=== PATIENT | female | born 2000 | race Caucasian/White ===

== ENCOUNTER 2023-05-04 19:55 | Emergency (ER) | payer OTHER, MEDICAID, SELFPAY ==
[2023-05-04 21:00] VITALS: BP 113/65; PULSE 90; RESP 18; TEMP 37.1; O2SAT 97; BMI 26.9
[2023-05-04 21:33] LABS: Basophils Percent Auto 0.2 % (0-2); Eosinophils Percent Auto 0.1 % (0-4); Hematocrit 42.1 % (37.0-47.0); Hemoglobin 14.6 g/dl (12.0-16.0); Imm Gran Abs Auto 0.07 X10*3/uL (0.00-0.03); Imm Gran Pct Auto 0.4 % (0.0-0.4); Lymphocytes Absolute Auto 0.5 X10*3/uL (1.2-4.9); MANUAL DIFF FLAG SCAN; Mean Corpuscular HGB Conc 34.7 g/dl (31.0-35.0); Mean Corpuscular Hemoglobin 29.6 pg (27.0-33.0); Mean Corpuscular Volume 85.2 fL (80.0-98.0); Monocytes Absolute Auto 0.5 X10*3/uL (0.1-1.2); Neutrophils Absolute Auto 14.5 x10*3/uL (2.0-8.3); Neutrophils Percent Auto 93.3 % (45-73); Platelet Count 297 X10*3/uL (160-400); Red Blood Count 4.94 X10*6/uL (4.20-5.50); Red Cell Distribution Width 11.9 % (11.0-16.0); SCAN SMEAR FLAG 1; White Blood Count 15.6 X10*3/uL (4.8-10.8)
[2023-05-04 21:35] LABS: Appearance Urine Clear; Color Urine Yellow; Glucose Urine UA Negative (Negative); Leukocyte Esterase Urine Trace (Negative); Nitrite Urine Negative (Negative); PH 6.5 (5.0-9.0); Specific Gravity - Urine >= 1.030 (1.005-1.025); UMIC TRIGGER UACC YES; Urine Blood Negative (Negative); Urine Ketones 15 mg/dL (Negative); Urine Protein Trace mg/dL (Neg-Trace)
[2023-05-04 21:36] LABS: UPreg QC Valid YES; Urine Pregnancy NEGATIVE (NEGATIVE)
[2023-05-04 21:38] LABS: Bacteria Urine 2+ (None Seen); Hyaline Casts Urine 0-2 /LPF (0-2); RBC Urine 0-2 /HPF (0-2); WBC Urine 0-5 /HPF (0-5)
[2023-05-04 21:47] LABS: Alanine Aminotransferase 14 U/L (0-31); Albumin Level 4.2 g/dL (3.5-5.0); Alkaline Phosphatase 81 U/L (39-117); Anion Gap 15 (12-20); Aspartate Amino Transferase 21 U/L (5-31); Bilirubin Total 0.8 mg/dL (0.0-1.0); Blood Urea Nitrogen 14 mg/dL (9-16); Calcium 9.7 mg/dL (8.4-10.2); Carbon Dioxide 22 mmol/L (22-29); Chloride 108 mmol/L (96-108); Creatinine Clr Calc Pharmacy 92.1; Estimated Glomerular Filt Rate > 60; Glucose Random 124 mg/dL (60-115); Sodium 141 mmol/L (135-145); Total Protein 7.3 g/dL (6.5-8.0)
[2023-05-04 21:51] LABS: SLIDE REVIEW VERIFIED
[2023-05-04 22:10] LABS: Influenza A PCR NEGATIVE (Negative); Influenza B PCR NEGATIVE (Negative); Resp Syncy Virus RNA Qual PCR NEGATIVE (Negative); SARS COV2 PCR INHOUSE NEGATIVE (Negative)
[2023-05-04 22:41] VITALS: BP 105/65; PULSE 86; TEMP 36.6; O2SAT 96
--- NOTE | 2023-05-04 23:42 | ED_ITS ---
HPI - Nausea/Vomiting/Diarrhea General Chief complaint: Nausea/Vomiting/Diarrhea Stated complaint: Vomiting, diarrhea, back and abd pain Time Seen by Provider: 05/04/23 23:41 Source: patient and other (Significant other) Mode of arrival: ambulatory Limitations: no limitations History of Present Illness HPI Narrative: 23-year-old female with a history of anxiety and migraine headaches who presents emergency department for evaluation of nausea, vomiting and diarrhea. The patient states that her symptoms started 5 hours prior to coming to the emergency department. She states that she has vomited at least 12 times. She has had at least 10 episodes of diarrhea. She has not noticed any blood in the emesis or diarrhea. She denied fever, chills. She denied rhinorrhea, sore throat, cough, chest pain. She states she was feeling short of breath but she attributes this to her anxiety. She states she is feeling very weak and fatigued. Related Data Previous Rx's Medication Instructions Recorded ondansetron 4 mg disintegrating 4 mg PO Q6-8H PRN nausea and 05/04/23 tablet vomiting #14 tabs Allergies Allergy/AdvReac Type Severity Reaction Status Date / Time Seasonal Allergies Allergy Itchy Eyes Verified 05/04/23 21:03 Review of Systems 2 Review of Systems: Yes all other systems are reviewed and are negative [facility] Past Medical History [facility] Narrative: Past medical history: Migraine, anxiety. Social history: She denies tobacco, alcohol and drug use. Social History Social History Advance Directives: No Advance Directives Information Provided: No Physical Exam 2 Vital Signs: Vital Signs: Last Vital Signs Temp 97.9 F 05/04/23 22:41 Pulse 86 05/04/23 22:41 Resp 18 05/04/23 21:00 BP 105/65 05/04/23 22:41 Pulse Ox 96 05/04/23 22:41 O2 Del Method Room Air 05/04/23 22:41 BMI result Body Mass Index 26.9 Vital signs are normal Exam: General: Awake, alert in no distress Head: Normocephalic, atraumatic EENT: PERRL, Lids normal, sclera normal, conjunctiva normal, nose normal , ears normal, throat without erythema or exudates Neck: Supple, no adenopathy, no trachea midline or C-spine tenderness Lung: breath sounds symmetric, no wheezing, rales or rhonchi Chest: symmetric movement, nontender Heart: regular rate and rhythm, normal S1, S2 no murmurs or rubs Abdomen: soft, mild to moderate epigastric tenderness, nondistended, normal bowel sounds Back: no vertebral tenderness, no CVAT Extremities: no deformities, moves all extremities symmetrically Neuro: Awake, alert, oriented, normal speech, moves all extremities symmetrically Psych: Pleasant, cooperative Medications Administered Generic Name Dose Route Start Last Admin Trade Name Freq PRN Reason Stop Dose Admin Sodium Chloride 1,000 mls @ 999 mls/hr 05/04/23 23:50 05/05/23 00:03 Ns IV 05/05/23 00:50 999 mls/hr .Q1H1M STA Administration Discontinued Medications Generic Name Dose Route Start Last Admin Trade Name Freq PRN Reason Stop Dose Admin Ketorolac Tromethamine 15 mg 05/04/23 23:50 05/05/23 00:05 Ketorolac Tromethamine 15 Mg/Ml Vial IVPUSH 05/04/23 23:51 15 mg ONCE STA Administration Ondansetron HCl 4 mg 05/04/23 23:50 05/05/23 00:05 Ondansetron Hcl 4 Mg/2 Ml Vial IVPUSH 05/04/23 23:51 4 mg ONCE ONE Administration Medical Decision Making Medical Decision Making [facility] Narrative: 23-year-old female who presents emergency department for evaluation of nausea, vomiting and diarrhea which started 5 hours prior to coming to emergency department. She had no fever chills or URI like symptoms. She denied myalgias arthralgias. She did have abdominal pain. Vital signs were normal. Exam revealed epigastric tenderness. Laboratory evaluation was interpreted by me as follows: WBC elevated 15,600. H&H normal. Glucose elevated 124 otherwise CMP was normal. COVID-19, influenza and RSV were negative. Urine test was negative. Laboratory evaluations nondiagnostic Patient's symptoms are most likely secondary to viral syndrome versus food poisoning I did discuss this with her. Patient was treated with normal saline IV x1 L, Toradol 15 mg IV for abdominal pain and Zofran 4 mg IV for her nausea and vomiting. 00:34 Patient is feeling better after the above treatment. Patient was discharged home with a prescription for Zofran ODT, she was given printed and verbal instructions. She was advised to take Tylenol ibuprofen for pain and Imodium for diarrhea She was advised to stay on a brat diet. Differential Diagnosis Differential Diagnoses: The differential diagnosis associated with the presentation includes Differential diagnosis includes was not limited to viral syndrome, food poisoning, COVID-19, influenza, RSV, anemia, Admission/Observation Consideration of admission/observation: Escalation of care including admission/observation considered Lab Data MDM Lab Attestation statement: I reviewed the patient's lab results. 05/04/23 21:20 05/04/23 21:20 Labs: Lab Results 05/04/23 Range/Units 21:20 WBC 15.6 H (4.8-10.8) X10*3/uL RBC 4.94 (4.20-5.50) X10*6/uL Hgb 14.6 (12.0-16.0) g/dl Hct 42.1 (37.0-47.0) % MCV 85.2 (80.0-98.0) fL MCH 29.6 (27.0-33.0) pg MCHC 34.7 (31.0-35.0) g/dl RDW 11.9 (11.0-16.0) % Plt Count 297 (160-400) X10*3/uL MPV 10.0 (9.4-12.3) fL Immature Gran % (Auto) 0.4 (0.0-0.4) % Neut % (Auto) 93.3 H (45-73) % Lymph % (Auto) 3.0 L (20-40) % [place] % (Auto) 3.0 (2-11) % Eos % (Auto) 0.1 (0-4) % Baso % (Auto) 0.2 (0-2) % Lymph # (Auto) 0.5 L (1.2-4.9) X10*3/uL [place] # (Auto) 0.5 (0.1-1.2) X10*3/uL Eos # (Auto) 0.0 (0.0-0.4) X10*3/uL Baso # (Auto) 0.0 (0.0-0.2) X10*3/uL Abs Immat Gran (auto) 0.07 H (0.00-0.03) X10*3/uL Absolute Neuts (auto) 14.5 H (2.0-8.3) x10*3/uL Absolute Nucleated RBC 0.000 (0.0-0.012) X10*3/uL Nucleated RBC % (auto) 0.0 (0.0-0.2) /100WBC Smear Tech's Comments VERIFIED Sodium 141 (135-145) mmol/L Potassium 4.0 (3.3-5.1) mmol/L Chloride 108 (96-108) mmol/L Carbon Dioxide 22 (22-29) mmol/L Anion Gap 15 (12-20) BUN 14 (9-16) mg/dL Creatinine 0.87 (0.5-1.4) mg/dL Estim Creat Clear Calc 92.1 Estimated GFR > 60 Random Glucose 124 H (60-115) mg/dL Calcium 9.7 (8.4-10.2) mg/dL Total Bilirubin 0.8 (0.0-1.0) mg/dL AST 21 (5-31) U/L ALT 14 (0-31) U/L Alkaline Phosphatase 81 (39-117) U/L Total Protein 7.3 (6.5-8.0) g/dL Albumin 4.2 (3.5-5.0) g/dL Urine Color Yellow Urine Appearance Clear Urine pH 6.5 (5.0-9.0) Ur Specific Elrod >= 1.030 H (1.005-1.025) Urine Protein Trace (Neg-Trace) mg/dL Urine Glucose (UA) Negative (Negative) mg/dL Urine Ketones 15 (Negative) mg/dL Urine Blood Negative (Negative) Urine Nitrite Negative (Negative) Ur Leukocyte Esterase Trace H (Negative) Urine RBC 0-2 (0-2) /HPF Urine WBC 0-5 (0-5) /HPF Ur Squamous Epith Cells 6-10 (0-2) /HPF Urine Bacteria 2+ (None Seen) Hyaline Casts 0-2 (0-2) /LPF Urine Test NEGATIVE (NEGATIVE) Influenza Type A (PCR) NEGATIVE (Negative) Influenza Type B (PCR) NEGATIVE (Negative) RSV RNA Qual (PCR) NEGATIVE (Negative) SARS-CoV-2 RNA (RT-PCR) NEGATIVE (Negative) Independent Historian Clinical information obtained from an independent historian. History obtained from or confirmed by: Other (Significant other, Pola) Prescription Management I considered prescription management with: Other (Antiemetics) Chronic Conditions Patient?s care impacted by: Other (Anxiety, migraine) Discharge Plan Discharge Clinical Impression: Viral syndrome, Acute dehydration Vomiting Qualifiers: Vomiting type: unspecified Nausea presence: with nausea Qualified Code(s): R 11.2 - Nausea with vomiting, unspecified Diarrhea Qualifiers: Diarrhea type: unspecified type Qualified Code(s): R19.7 - Diarrhea, unspecified Patient Disposition: Home, Self-Care Instructions: Viral Syndrome (ED) Additional Instructions: Your laboratory evaluation was normal. Your test was negative. Your COVID-19, influenza and RSV tests were negative Your symptoms are consistent with a virus which is causing you to vomit and have diarrhea. Increase your fluid intake. Take Zofran ODT 4 mg pills, 1 pill dissolved in your mouth every 8 hours as needed for nausea and vomiting. Take ibuprofen 200 mg pills, 2 pills every 6 hours as needed for pain or fever. Take Tylenol (acetaminophen) 500 mg pills, 2 pills every 6 hours as needed for pain or fever. For diarrhea I want you to take Imodium 2 mg pills. Take 2 pills after the 1st loose, diarrheal stool then 1 pill after each loose, diarrheal stool up to 8 pills per day. This usually stops diarrhea within 24 hours. For the next 24 hours, stay on a CARLITA diet (bananas, rice, applesauce, tea and toast). Follow-up with your doctor in 2 days. Please return to the emergency department if your symptoms get worse or if you develop any symptoms that are concerning to you. Prescriptions: New ondansetron 4 mg tablet,disintegrating 4 mg PO Q6-8H PRN (Reason: nausea and vomiting) Qty: 14 0RF
[2023-05-05] MEDS: 0.9 % Sodium Chloride 1,000 ML 999 ML IV (00:03)
[2023-05-05] MEDS: ondansetron HCL 4 MG/2 ML VIAL IVPUSH (00:05)
[2023-05-05] MEDS: Ketorolac Tromethamine 15 MG/ML VIAL IVPUSH (00:05)
[2023-05-05 01:37] VITALS: BP 99/55; PULSE 81; RESP 14; TEMP 36.9; O2SAT 96
--- NOTE | 2023-05-05 01:37 | PC.NURSE ---
. pt ambulatory at discharge. iv removed. pt partner at bedside. pt provided with discharge packet. pt verbalized understanding of discharge plan
== END 2023-05-05 01:39 | disposition home or self-care (01) ==
PROVIDERS: Emergency Provider Emergency Medicine Emergency Medical Services
DX: B34.9 Viral infection, unspecified (principal); E86.0 Dehydration; R11.2 Nausea with vomiting, unspecified; R19.7 Diarrhea, unspecified; Z20.822 Contact with and (suspected) exposure to COVID-19; Z20.828 Contact with and (suspected) exposure to other viral communicable diseases
CPT/HCPCS: 0241U; 80053; 81001; 81025; 85025; 96361; 96374; 96375; 99284; J1885; J2405